=== PATIENT | female | born 1965 | race Caucasian/White ===

== ENCOUNTER 2024-07-23 12:55 | Inpatient (IN) | payer MEDICAID ==
[~2024-07-23] VITALS: Ht 162.6 cm; Wt 77.1 kg
[2024-07-23 21:30] VITALS: BP 135/80; TEMP 97.9; O2SAT 98
[2024-07-23 21:35] VITALS: BP 147/72; TEMP 99; O2SAT 97
[2024-07-23] MEDS ORDERED: ZOLPIDEM TARTRATE 5 MG TABLET PO PRN (23:00)
[2024-07-23] MEDS ORDERED: MAG HYDROX/AL HYDROX/SIMETH 30 ML UDC PO PRN (23:00)
[2024-07-23] MEDS ORDERED: ACETAMINOPHEN 325 MG TABLET PO PRN (23:00)
[2024-07-23] MEDS ORDERED: MAGNESIUM HYDROXIDE 30 ML UDC PO PRN (23:00)
[2024-07-23] MEDS ORDERED: Z GUARD REMEDY 4 OZ OINT TP PRN (23:00)
[2024-07-23] MEDS ORDERED: ONDANSETRON HCL/PF 4 MG/2 ML VIAL IVP PRN (23:00)
[2024-07-24] VITALS (17 sets, daily range): BP systolic 96–138; BP diastolic 60–87; TEMP 97.6–98.4; O2SAT 95–100
[2024-07-24 06:43] LABS: INR 0.99 (0.91-1.10); PROTHROMBIN TIME 10.5 SECS (9.2-11.1)
[2024-07-24 06:45] LABS: BASOPHILS # (AUTO) 0.1 K/uL (0.0-0.2); BASOPHILS % (AUTO) 0.8 % (0.0-2.0); EOSINOPHILS # (AUTO) 0.1 K/uL (0.0-0.7); EOSINOPHILS % (AUTO) 1.4 % (0.0-6.0); HEMATOCRIT 35 % (33-45); HEMOGLOBIN 11.8 g/dL (11.5-14.8); LYMPHOCYTES # (AUTO) 3.6 K/uL (0.8-4.8); LYMPHOCYTES % (AUTO) 46.4 % (20.0-44.0); MEAN CORPUSCULAR HEMOGLOBIN 28 PG (26.0-33.0); MEAN CORPUSCULAR HGB CONC 34 g/dl (31.0-36.0); MEAN CORPUSCULAR VOLUME 83 fL (82-100); MONOCYTES # (AUTO) 0.6 K/uL (0.1-1.30); MONOCYTES % (AUTO) 7.6 % (2.0-12.0); NEUTROPHILS # (AUTO) 3.4 K/uL (1.8-8.9); NEUTROPHILS % (AUTO) 43.8 % (43.0-81.0); PLATELET COUNT (AUTO) 418 K/uL (150-450); RED BLOOD CELL COUNT(AUTO) 4.18 MIL/uL (4.0-5.2); RED CELL DISTRIBUTION WIDTH 14.3 % (11.5-15.0); WHITE BLOOD COUNT (AUTO) 7.8 K/uL (4.3-11.0)
[2024-07-24 07:08] LABS: CALCIUM, SERUM 9.5 mg/dL (8.5-10.1); CARBON DIOXIDE 28 mmol/L (21-32); CHLORIDE 104 mmol/L (98-107); CREATININE 0.9 mg/dL (0.6-1.3); GLUCOSE 165 mg/dL (74-106); MAGNESIUM 1.8 mg/dL (1.8-2.4); PHOSPHORUS 4.3 mg/dL (2.5-4.9); POTASSIUM 3.6 mmol/L (3.5-5.1); SODIUM SERUM 142 mmol/L (136-145); UREA NITROGEN, BLOOD 22 mg/dL (7-18)
[2024-07-24] MEDS ORDERED: IV NS 0.9% 500 ML IV ONE (07:27)
[2024-07-24] MEDS ORDERED: IODIXANOL 150 ML IV ONE (07:27)
[2024-07-24] MEDS ORDERED: LIDOCAINE HCL/MPF 1% 30 ML VIAL IJ ONE (07:27)
[2024-07-24] MEDS ORDERED: IV SET PRIMARY PUMP SET 1 EA INFUS.SET MC ONE ×2 (07:27→09:04)
[2024-07-24] MEDS ORDERED: NITROGLYCERIN IN 5 % DEXTROSE 250 ML IV ONE (07:28)
[2024-07-24] MEDS ORDERED: ESOM40CA PO (07:44)
[2024-07-24] MEDS ORDERED: METO25TA6 PO (07:44)
[2024-07-24] MEDS ORDERED: PANT40TA2 PO (07:44)
[2024-07-24] MEDS ORDERED: ALOG12.5 PO (07:44)
[2024-07-24] MEDS ORDERED: LISI20TA30 PO (07:44)
[2024-07-24] MEDS ORDERED: ASPI-1169 PO (07:44)
[2024-07-24] MEDS ORDERED: ATOR40TA PO (07:44)
[2024-07-24] MEDS ORDERED: ENOX40DI SQ (07:44)
[2024-07-24] MEDS ORDERED: FENTANYL PF 100MCG/2ML AMPUL ONE (08:36)
[2024-07-24] MEDS ORDERED: MIDAZOLAM HCL 2 MG/2ML VIAL ONE (08:36)
[2024-07-24] MEDS ORDERED: IODIXANOL 320MG/ML 50 ML IV ONE (08:48)
[2024-07-24] MEDS ORDERED: HEPARIN SODIUM, PORCINE 1,000 UNIT/ML VIAL ONE ×2 (08:48→09:14)
[2024-07-24] MEDS ORDERED: HEPARIN SODIUM, PORCINE 5000 UNITS/1 ML VIAL ONE (08:48)
[2024-07-24] MEDS ORDERED: NOREPINEPHRINE 8MG/250ML RTU 0 ML IV ONE (09:04)
[2024-07-24] MEDS ORDERED: TICAGRELOR 90 MG TABLET ONE (09:11)
[2024-07-24] MEDS: IV NS 0.9% 250 ML IV ONE (10:03)
[2024-07-24] MEDS: ATORVASTATIN 40 MG TABLET PO SCH ×2 (10:10→21:17)
[2024-07-24] MEDS: METOPROLOL TARTRATE 25 MG TABLET PO SCH (10:10)
[2024-07-24] MEDS: LINAGLIPTIN 5 MG TABLET PO SCH (12:24)
[2024-07-24] MEDS: TICAGRELOR 90 MG TABLET PO SCH (17:52)
[2024-07-24] MEDS: NITROGLYCERIN 30 GM TUBE TP ONE (18:30)
[2024-07-24] MEDS ORDERED: DEXTROSE 50%-WATER 50 ML DISP.SYRIN IV PRN (20:30)
[2024-07-24] MEDS ORDERED: METF-442 PO (21:02)
[2024-07-24] MEDS: BLOOD SUGAR DIAGNOSTIC 1 EACH STRIP IN SCH (22:23)
[2024-07-24] MEDS: INSULIN REGULAR, HUMAN 100 UNIT/ML 3 ML VIAL SQ PRN (22:25)
[2024-07-25] VITALS: BP 113/59; TEMP 98.1; O2SAT 98
[2024-07-25 07:30] VITALS: BP 142/94; TEMP 100.2; O2SAT 94
[2024-07-25] MEDS ORDERED: Medication Not On Formulary EA (Esomeprazole Mag Trihydrate (Nexium) 40 MG) PO SCH (09:00)
[2024-07-25] MEDS ORDERED: ASPIRIN EC 81 MG TABLET.DR PO SCH (09:00)
[2024-07-25] MEDS ORDERED: METOPROLOL TARTRATE 25 MG TABLET PO SCH (09:00)
[2024-07-25] MEDS: ASPIRIN 81 MG TAB.CHEW PO SCH (10:04)
[2024-07-25] MEDS: ENOXAPARIN SODIUM 40 MG/0.4 ML DISP.SYRIN SQ SCH (10:04)
[2024-07-25] MEDS: PANTOPRAZOLE 40 MG TABLET.DR PO SCH (10:04)
[2024-07-25] MEDS: LISINOPRIL (20MG) 20 MG TABLET PO SCH (10:05)
[2024-07-25 10:06] VITALS: BP 130/76
[2024-07-25] MEDS ORDERED: METO25TA20 PO (12:50)
[2024-07-25] MEDS ORDERED: TICA90TA PO (12:50)
== END 2024-07-25 17:58 | disposition home or self-care (01) | DRG 175 ==
LOC: TELE 21:25 → ICU 07-24 10:01 → TELE 07-24 16:21
PROVIDERS: ADMIT Nurse Practitioner Family; ATTEND Nurse Practitioner Acute Care
PROC: 027034Z Dilation of Coronary Artery, One Artery with Drug-eluting Intraluminal Device, Percutaneous Approach (ICD-10-PCS; principal; 2024-07-24)
PROC: 4A023N7 Measurement of Cardiac Sampling and Pressure, Left Heart, Percutaneous Approach (ICD-10-PCS; 2024-07-24)
PROC: B211YZZ Fluoroscopy of Multiple Coronary Arteries using Other Contrast (ICD-10-PCS; 2024-07-24)
PROC: B41FYZZ Fluoroscopy of Right Lower Extremity Arteries using Other Contrast (ICD-10-PCS; 2024-07-24)
DX: I25.10 Atherosclerotic heart disease of native coronary artery without angina pectoris (principal); I21.A1 Myocardial infarction type 2; E11.9 Type 2 diabetes mellitus without complications; E78.5 Hyperlipidemia, unspecified; K21.9 Gastro-esophageal reflux disease without esophagitis; I10 Essential (primary) hypertension; E66.3 Overweight; Z68.29 Body mass index [BMI] 29.0-29.9, adult
CPT/HCPCS: 36415; 80048-TC; 82962-TC; 83735-TC; 84100-TC; 84484-TC; 85025-TC; 85347; 85610-TC; 87081-TC; A4223; G0378; J1644; J1650; J1815; J2250; J3010; J3490; J7030; J7040; Q9967

== ENCOUNTER 2025-08-25 00:31 | Emergency (ER) | payer MEDICAID ==
[~2025-08-25] VITALS: Ht 157.5 cm; Wt 72.6 kg
[~2025-08-25 00:31] MED LIST: ALOG12.5 PO; ASPI-1169 PO; ATOR40TA PO; ENOX40DI SQ; ESOM40CA PO; LISI20TA30 PO; METF-442 PO; METO25TA20 PO; METO25TA6 PO; PANT40TA2 PO; TICA90TA PO
[2025-08-25 01:08] LABS: PLATELET COUNT (AUTO) 394 K/uL (150-450); RED BLOOD CELL COUNT(AUTO) 4.19 MIL/uL (4.0-5.2); RED CELL DISTRIBUTION WIDTH 14.9 % (11.5-15.0); WHITE BLOOD COUNT (AUTO) 7.7 K/uL (4.3-11.0)
[2025-08-25 01:14] LABS: CALCIUM, SERUM 9.3 mg/dL (8.5-10.1); CREATININE 1.1 mg/dL (0.6-1.3); SODIUM SERUM 137.0 mmol/L (136-145); UREA NITROGEN, BLOOD 28.0 mg/dL (7-18)
[2025-08-25 01:30] LABS: ASPARTATE AMINOTRANSFERASE 18.0 U/L (15-37); NT-PRO BNP 93.0 pg/mL (0-125); TOTAL PROTEIN, SERUM 8.3 g/dL (6.4-8.2)
[2025-08-25] MEDS ORDERED: METO25TA4 PO (02:39)
[2025-08-25 03:28] VITALS: BP 120/76; TEMP 98.3; O2SAT 98
== END 2025-08-25 03:28 | disposition home or self-care (01) ==
LOC: ER 00:33
DX: R07.89 Other chest pain (principal); I11.9 Hypertensive heart disease without heart failure; E11.9 Type 2 diabetes mellitus without complications; E78.5 Hyperlipidemia, unspecified; R06.02 Shortness of breath; Z95.5 Presence of coronary angioplasty implant and graft; Z79.899 Other long term (current) drug therapy; Z79.84 Long term (current) use of oral hypoglycemic drugs; Z79.82 Long term (current) use of aspirin; Z79.02 Long term (current) use of antithrombotics/antiplatelets
CPT/HCPCS: 36415; 71045-TC; 80053-TC; 83735-TC; 83880; 84443-TC; 84484-TC; 85025-TC